=== PATIENT | female | born 1945 | race Caucasian/White ===

== ENCOUNTER 2017-04-17 11:00 | Outpatient (RCR) | payer MEDICARE, BC | END 2017-05-12 | disposition home or self-care (01) | LOC: PTY 11:00 | DX: M54.9 Dorsalgia, unspecified (principal); M54.2 Cervicalgia; M25.512 Pain in left shoulder; M25.511 Pain in right shoulder | CPT/HCPCS: 97110; 97140; 97162; G0283; G8981; G8982 ==

== ENCOUNTER 2017-05-15 10:00 | Outpatient (RCR) | payer MEDICARE, BC | END 2017-06-12 | disposition home or self-care (01) | LOC: PTY 10:00 | DX: M54.9 Dorsalgia, unspecified (principal); M54.2 Cervicalgia; M25.512 Pain in left shoulder; M25.511 Pain in right shoulder | CPT/HCPCS: 97035; 97110; 97140; G0283; G8978; G8979 ==

== ENCOUNTER 2017-06-30 10:00 | Outpatient (RCR) | payer MEDICARE, BC | END 2017-07-13 | disposition home or self-care (01) | LOC: PTY 10:00 | DX: M54.2 Cervicalgia (principal); M54.9 Dorsalgia, unspecified; M25.512 Pain in left shoulder; M25.511 Pain in right shoulder | CPT/HCPCS: 97032; 97140; G0283 ==